=== PATIENT | female | born 1980 | race African-American/Black ===

== ENCOUNTER 2017-08-24 18:21 | Emergency (ER) | payer MEDICAID ==
[~2017-08-24] VITALS: Ht 170.2 cm; Wt 79.5 kg
[2017-08-24 18:24] VITALS: BP 139/85; TEMP 98.7
[2017-08-24 18:51] LABS: BASO % 0.4 % (0.0-2.0); EOS # 0.1 (0.0-0.7); EOS % 0.8 % (0-4.0); GRAN # 7.1 (1.4-6.5); GRAN % 68.3 % (42.2-75.2); LYMPH # 2.1 (1.2-3.4); LYMPH % 20.5 % (20.0-51.0); MEAN CELL VOLUME 69 fl (80.0-100.0); MEAN CORPUSCULAR HGB CONC 30 g/dl (33.0-37.0); MEAN PLATELET VOLUME 9.7 fl (7.4-10.4); MONO % 9.6 % (1.7-9.3); PLATELET COUNT 434 K/mm3 (130-400); RED BLOOD COUNT 4.47 M/mm3 (4.10-5.30); REDCELL DISTRIBUTION WIDTH-CV 18.6 % (11.5-14.5)
[2017-08-24 18:53] LABS: HEMATOCRIT 30.9 % (37.0-47.0); HEMOGLOBIN 9.3 g/dl (12.5-16.0); MEAN CORPUSCULAR HEMOGLOBIN 21 pg (27.0-31.0)
[2017-08-24 19:19] LABS: COLLECTION METHOD CLEAN CATCH
[2017-08-24 19:28] LABS: MUCOUS Present /lpf; PH 7 (5-8); SQUAMOUS EPITHELIAL 0-2 /hpf; URINE APPEARANCE Clear; URINE BACTERIA None Seen /hpf; URINE BILIRUBIN Negative (NEGATIVE); URINE BLOOD Negative (NEGATIVE); URINE COLOR Yellow; URINE GLUCOSE Negative (NEGATIVE); URINE KETONE Negative (NEGATIVE); URINE LEUKOCYTE ESTERASE Negative (NEGATIVE); URINE NITRATE Negative (NEGATIVE); URINE PROTEIN(semi-quant) Negative (NEGATIVE); URINE RBC 0-2 /hpf; URINE UROBILINOGEN Negative (NEGATIVE)
[2017-08-24 20:59] VITALS: PULSE 90
== END 2017-08-24 20:36 | disposition home or self-care (01) ==
LOC: COL.ER 18:21
PROVIDERS: Nurse Practitioner
DX: O26.891 Other specified pregnancy related conditions, first trimester (principal); R10.2 Pelvic and perineal pain; Z3A.00 Weeks of gestation of pregnancy not specified
CPT/HCPCS: J7030

== ENCOUNTER 2017-10-29 10:28 | Emergency (ER) | payer MEDICAID ==
[~2017-10-29] VITALS: Ht 170.2 cm; Wt 74.5 kg
[2017-10-29 10:30] VITALS: BP 104/61; PULSE 96; TEMP 98.6
[2017-10-29 10:50] LABS: COLLECTION METHOD CLEAN CATCH
[2017-10-29 11:00] LABS: BASO % 0.4 % (0.0-2.0); EOS # 0.1 (0.0-0.7); EOS % 0.6 % (0-4.0); GRAN # 7.8 (1.4-6.5); GRAN % 77.7 % (42.2-75.2); HEMATOCRIT 30.1 % (37.0-47.0); HEMOGLOBIN 8.9 g/dl (12.5-16.0); LYMPH # 1.3 (1.2-3.4); LYMPH % 12.8 % (20.0-51.0); MEAN CELL VOLUME 72 fl (80.0-100.0); MEAN CORPUSCULAR HEMOGLOBIN 21 pg (27.0-31.0); MEAN CORPUSCULAR HGB CONC 30 g/dl (33.0-37.0); MEAN PLATELET VOLUME 9.6 fl (7.4-10.4); MONO # 0.8 (0.1-0.6); MONO % 8.1 % (1.7-9.3); PLATELET COUNT 433 K/mm3 (130-400); REDCELL DISTRIBUTION WIDTH-CV 17.5 % (11.5-14.5)
[2017-10-29 11:07] LABS: ALBUMIN 3.6 gm/dL (3.5-5.0); BILIRUBIN,TOTAL 0.2 mg/dL (0.0-1.0); CALCIUM 9.1 mg/dL (8.4-10.2); CREATININE, serum 0.56 mg/dL (0.52-1.25); POTASSIUM 4.1 mmol/L (3.4-5.0); TOTAL PROTEIN 7.1 gm/dL (6.4-8.2)
[2017-10-29 11:33] LABS: MUCOUS Present /lpf; PH 8 (5-8); URINE APPEARANCE Hazy; URINE BACTERIA Rare /hpf; URINE BILIRUBIN Negative (NEGATIVE); URINE BLOOD Negative (NEGATIVE); URINE COLOR Yellow; URINE GLUCOSE Negative (NEGATIVE); URINE KETONE Negative (NEGATIVE); URINE LEUKOCYTE ESTERASE Trace (NEGATIVE); URINE NITRATE Negative (NEGATIVE); URINE PROTEIN(semi-quant) Negative (NEGATIVE)
== END 2017-10-29 11:45 | disposition left against medical advice (07) ==
LOC: COL.ER 10:28
PROVIDERS: Emergency Medicine
DX: O99.012 Anemia complicating pregnancy, second trimester (principal); O26.892 Other specified pregnancy related conditions, second trimester; R10.9 Unspecified abdominal pain; Z3A.22 22 weeks gestation of pregnancy

== ENCOUNTER → 2018-02-08 | Outpatient (CLI) | payer MEDICAID ==
[~2018-02-08] VITALS: Ht 162.6 cm; Wt 88.2 kg
[~2018-02-08] MED LIST: PRENATAL PO
[2018-02-08 08:48] VITALS: BP 115/72; PULSE 90; TEMP 98.1
[2018-02-08 09:30] VITALS: BP 118/78; PULSE 93
[2018-02-08 10:00] VITALS: BP 117/83; PULSE 96
[2018-02-08 10:30] VITALS: BP 125/81; PULSE 90
[2018-02-08 11:00] VITALS: BP 119/78; PULSE 89
== END ==
LOC: COL.ER 08:19 → LDRO 08:22 → EDSTATUS 08:32
DX: O9A.213 Injury, poisoning and certain other consequences of external causes complicating pregnancy, third trimester (principal); Z3A.39 39 weeks gestation of pregnancy

== ENCOUNTER 2018-03-03 14:55 | Outpatient (CLI) | payer MEDICAID ==
[~2018-03-03] VITALS: Ht 170.2 cm; Wt 87.7 kg
[2018-03-03 15:32] VITALS: BP 118/75; PULSE 85; TEMP 984
[2018-03-03 15:45] VITALS: BP 118/75; PULSE 85
== END 2018-03-03 16:25 | disposition home or self-care (01) ==
LOC: LDRO 14:55 → LDR 16:12 → LDRO 16:25
DX: O99.89 Other specified diseases and conditions complicating pregnancy, childbirth and the puerperium (principal); Z3A.40 40 weeks gestation of pregnancy
CPT/HCPCS: OP

== ENCOUNTER 2019-10-17 22:31 | Emergency (ER) | payer MEDICAID ==
[~2019-10-17] VITALS: Ht 170.2 cm; Wt 98.6 kg
[2019-10-17 22:35] VITALS: BP 139/99; TEMP 97.1
[2019-10-18] MEDS ORDERED: PREDNISONE20 MG PO (00:04)
[2019-10-18] MEDS ORDERED: CLEOCIN HCL300 MG PO (00:04)
[2019-10-18 00:25] VITALS: PULSE 88
== END 2019-10-18 00:27 | disposition home or self-care (01) ==
LOC: COL.ER 22:31
DX: J03.90 Acute tonsillitis, unspecified (principal)
CPT/HCPCS: J7512; Q9967

== ENCOUNTER 2020-08-23 22:09 | Emergency (ER) | payer MEDICAID ==
[~2020-08-23] VITALS: Ht 170.2 cm; Wt 95.5 kg
[~2020-08-23 22:09] MED LIST changes: +CLEOCIN HCL300 MG PO; +PREDNISONE20 MG PO
[2020-08-23 22:47] LABS: BASO # 0.1 (0.0-0.2); BASO % 0.5 % (0.0-2.0); EOS % 0.2 % (0-4.0); GRAN # 10.6 (1.4-6.5); GRAN % 83.5 % (42.2-75.2); LYMPH # 1.3 (1.2-3.4); MEAN CELL VOLUME 65 fl (80.0-100.0); MEAN CORPUSCULAR HGB CONC 28 g/dl (33.0-37.0); MEAN PLATELET VOLUME 9.6 fl (7.4-10.4); MONO # 0.7 (0.1-0.6); MONO % 5.5 % (1.7-9.3); PLATELET COUNT 527 K/mm3 (130-400); REDCELL DISTRIBUTION WIDTH-CV 18.6 % (11.5-14.5)
[2020-08-23 22:56] LABS: HEMATOCRIT 31.4 % (37.0-47.0); HEMOGLOBIN 8.7 g/dl (12.5-16.0); MEAN CORPUSCULAR HEMOGLOBIN 18 pg (27.0-31.0)
[2020-08-23 23:02] LABS: ALANINE AMINOTRANSFERASE 9 U/L (4-34); ALBUMIN 4.7 gm/dL (3.5-5.0); ALKALINE PHOSPHATASE 89 U/L (50-136); ANION GAP 11 mmol/L (7-16); AST,SGOT 22 U/L (15-37); BILIRUBIN,TOTAL < 0.1 mg/dL (0.0-1.0); BLOOD UREA NITROGEN 10 mg/dL (7-17); CALCIUM 9.1 mg/dL (8.4-10.2); CARBON DIOXIDE 23 mmol/L (22-30); CHLORIDE 105 mmol/L (98-107); CREATINE KINASE 145 U/L (30-135); CREATININE, serum 0.74 (0.52-1.25); GLUCOSE 104 mg/dL (74-106); LIPASE 74 U/L (23-300); POTASSIUM 3.2 mmol/L (3.4-5.0); SODIUM 138 mmol/L (137-145); TOTAL PROTEIN 8.6 gm/dL (6.4-8.2)
[2020-08-23 23:24] LABS: TROPONIN-I < 0.012 ng/mL (0.000-0.035)
[2020-08-24 00:21] LABS: COLLECTION METHOD CLEAN CATCH
[2020-08-24 00:27] LABS: PH 6 (5-8); SQUAMOUS EPITHELIAL 0-2 /hpf; URINE APPEARANCE Clear; URINE BACTERIA None Seen /hpf; URINE BILIRUBIN Negative (NEGATIVE); URINE BLOOD 1+ (NEGATIVE); URINE COLOR Colorless; URINE GLUCOSE Negative (NEGATIVE); URINE KETONE Trace (NEGATIVE); URINE LEUKOCYTE ESTERASE Negative (NEGATIVE); URINE NITRATE Negative (NEGATIVE); URINE PROTEIN(semi-quant) Negative (NEGATIVE); URINE RBC None Seen /hpf; URINE UROBILINOGEN Negative (NEGATIVE); URINE WBC 0-2 /hpf
[2020-08-24] MEDS ORDERED: ANTIVERT 25MG25 MG PO (01:07)
[2020-08-24] MEDS ORDERED: COLACE 100100 MG/CAP PO (01:07)
[2020-08-24] MEDS ORDERED: NATURAL IRON65 MG PO (01:07)
[2020-08-24 01:45] VITALS: BP 120/68; PULSE 82; TEMP 98.4
== END 2020-08-24 01:45 | disposition home or self-care (01) ==
LOC: COL.ER 22:09
PROVIDERS: Emergency Medicine
DX: D64.9 Anemia, unspecified (principal)
CPT/HCPCS: J2405; J7030

== ENCOUNTER 2021-03-10 08:45 | Emergency (ER) | payer MEDICAID ==
[~2021-03-10] VITALS: Ht 170.2 cm; Wt 95.5 kg
[~2021-03-10 08:45] MED LIST changes: +ANTIVERT 25MG25 MG PO; +COLACE 100100 MG/CAP PO; +NATURAL IRON65 MG PO
[2021-03-10 08:52] VITALS: TEMP 98.9
[2021-03-10 09:32] LABS: BASO # 0.1 K/mm3 (0.0-0.2); BASO % 0.8 % (0.0-2.0); EOS # 0.1 K/mm3 (0.0-0.7); EOS % 0.5 % (0-4.0); GRAN % 70.6 % (42.2-75.2); LYMPH # 2.5 K/mm3 (1.2-3.4); LYMPH % 19.3 % (20.0-51.0); MEAN CELL VOLUME 66 fl (80.0-100.0); MEAN CORPUSCULAR HGB CONC 28 g/dl (33.0-37.0); MEAN PLATELET VOLUME 9.2 fl (7.4-10.4); MONO # 1.1 K/mm3 (0.1-0.6); MONO % 8.6 % (1.7-9.3); PLATELET COUNT 503 K/mm3 (130-400); RED BLOOD COUNT 4.88 M/mm3 (4.10-5.30); REDCELL DISTRIBUTION WIDTH-CV 18.2 % (11.5-14.5)
[2021-03-10 09:33] LABS: HEMATOCRIT 32.3 % (37.0-47.0); MEAN CORPUSCULAR HEMOGLOBIN 18 pg (27.0-31.0)
[2021-03-10 09:54] LABS: ALANINE AMINOTRANSFERASE 8 U/L (0-55); ALBUMIN 4.3 gm/dL (3.5-5.0); ALKALINE PHOSPHATASE 80 U/L (40-150); ANION GAP 9 mmol/L (7-16); AST,SGOT 13 U/L (5-34); BILIRUBIN,TOTAL 0.2 mg/dL (0.2-1.2); BLOOD UREA NITROGEN 13 mg/dL (7-19); CALCIUM 9.2 mg/dL (8.4-10.2); CARBON DIOXIDE 23 mmol/L (22-29); CHLORIDE 107 mmol/L (98-107); CREATININE, serum 0.82 mg/dL (0.57-1.11); GLUCOSE 100 mg/dL (70-99); POTASSIUM 3.6 mmol/L (3.5-4.5); SODIUM 139 mmol/L (136-145); TOTAL PROTEIN 8.2 gm/dL (6.2-8.1)
[2021-03-10 10:01] LABS: TROPONIN-I < 0.010 ng/mL (0.00-0.033)
[2021-03-10 11:02] VITALS: BP 135/99; PULSE 86
== END 2021-03-10 11:02 | disposition home or self-care (01) ==
LOC: COL.ER 08:45
PROVIDERS: Personal Emergency Response Attendant
DX: D64.9 Anemia, unspecified (principal); R07.89 Other chest pain